=== PATIENT | female | born 1995 | race Caucasian/White ===

== ENCOUNTER → 2020-09-06 | Outpatient (CLI) | payer OTHER, SELFPAY | PROVIDERS: Referring Provider Internal Medicine; Visit Provider Internal Medicine | DX: Z23 Encounter for immunization (principal) | CPT/HCPCS: 90471; 90686 ==

== ENCOUNTER → 2020-11-03 11:29 | Outpatient (CLI) | payer OTHER, SELFPAY ==
[2020-11-03] MEDS: COVID-19 VACC(MODERNA-1)/PF 100 MCG/0.5 ML VIAL IM (11:36)
== END ==
PROVIDERS: Visit Provider Internal Medicine
DX: Z23 Encounter for immunization (principal)
CPT/HCPCS: 0011A; 91301

== ENCOUNTER → 2020-11-30 11:12 | Outpatient (CLI) | payer OTHER, SELFPAY ==
[2020-11-30] MEDS: COVID-19 VACC #2, MRNA(MOD) 100 MCG/0.5 ML VIAL IM (11:14)
== END ==
PROVIDERS: Visit Provider Internal Medicine
DX: Z23 Encounter for immunization (principal)
CPT/HCPCS: 0012A; 91301

== ENCOUNTER → 2021-09-25 08:11 | Outpatient (CLI) | payer OTHER, SELFPAY ==
[2021-09-25 11:40] LABS: COVID19 -Nasal RAPID Negative (Negative)
== END ==
PROVIDERS: Visit Provider Nurse Practitioner Family
DX: Z20.822 Contact with and (suspected) exposure to COVID-19 (principal); R05.9 Cough, unspecified; R09.89 Other specified symptoms and signs involving the circulatory and respiratory systems; R52 Pain, unspecified
CPT/HCPCS: 87635

== ENCOUNTER → 2022-03-15 15:04 | Outpatient (CLI) | payer OTHER, SELFPAY ==
--- NOTE | 2022-03-15 | DI.US.S_ITS ---
PROCEDURE: US OB >= 14 WEEKS FETUS INDICATIONS: 20 WEEK ANATOMY SCAN OUTSIDE/PRIOR DATING DATA: Last menstrual period (LMP): 10/16/2021 LMP-based estimated date of delivery (KELLE): 07/23/2022. First dating scan (date and location): 03/15/2022. Estimated date of delivery (KELLE) from first dating scan: 07/19/2022. The calculations are made using the ultrasound KELLE of 07/19/2022. TECHNIQUE: Real-time scanning was performed of the fetus, with image documentation and biometric measurements. COMPARISON: None. FINDINGS: General: A single living intrauterine gestation is present. Presentation: Vertex. Placenta: Placental position is anterior fundal , without previa. Amniotic fluid index: 13.9 cm, normal range is 5-24 cm. heart rate: 132 beats per minute. Maternal cervical canal: 4.6 cm long. Normal lower limit is 2.5 cm. biometrics: Biparietal diameter: 21 weeks 6 days Head circumference: 21 weeks 2 days Abdominal circumference: 22 weeks Femur length: 22 weeks 5 days Clinically estimated gestational age: 22 weeks Composite gestational age from present scan: 22 weeks Estimated weight and percentile: 481 g; 80 second percentile Anatomic survey: Neuro: Ventricles are non-dilated at less than 10 mm. Cisterna magna is normal at 3-11 mm. Cerebellum is normal in size and morphology. Nuchal skin fold: Normal at less than 6 mm between 14-21 weeks gestational age. Face: Nose and lips, facial profile are normal. Spine: No evidence for spina bifida. Heart: 4-chambered heart is present, with normal ventricular outflow tracts. Diaphragm: Diaphragm is intact. Stomach: Left-sided stomach is present. Kidneys: No hydronephrosis. Normal is less than 5 mm in 2nd trimester, less than 7 mm in 3rd trimester. Cord: 3-vessel cord has orthotopic insertion. Bladder: Normal in size. Extremities: All 4 extremities identified. IMPRESSION: 1. Single living IUP with mean composite gestational age of 22 weeks 0 days corresponding to ultrasound KELLE of 07/19/2022.. 2. Normal anatomic survey. We strive to produce accurate, complete, and clear reports of imaging services. To assist us in improving patient care, this report was composed using standard report templates and voice recognition software. Therefore, it may contain abnormal punctuation, insertions and/or omissions. Occasional wrong-word or sound-alike substitutions may occur. Though we review the report and make efforts to correct it, we do recommend that the report be read carefully in proper context to recognize any text inaccuracies. Dictated by: Gunnar MICHAEL Interpreted: Breanne Torres MD on 03/15/2022 at 16:26 Transcribed by: SELMA on 03/15/2022 at 16:32 Approved by: Breanne Torres M.D. on 03/15/2022 at 16:34
== END ==
PROVIDERS: PCP Family Medicine; Referring Provider Nurse Practitioner Obstetrics & Gynecology; Visit Provider Nurse Practitioner Obstetrics & Gynecology
DX: Z34.92 Encounter for supervision of normal pregnancy, unspecified, second trimester (principal); Z3A.22 22 weeks gestation of pregnancy
CPT/HCPCS: 76811

== ENCOUNTER 2022-07-05 05:57 | Observation (INO) | payer OTHER, SELFPAY ==
[2022-07-05] MEDS: TERBUTALINE 1 MG/ML VIAL 0.25 MG SUBCUT (07:26)
[2022-07-05] MEDS: ONDANSETRON 4 MG/2 ML INJ IV (07:26)
[2022-07-05 07:29] LABS: Add Manual Diff / Slide Review NO; Basophils Absolute Auto 0 /uL (0-100); Basophils Percent Auto 0.2 % (0-2); Eosinophils Absolute Auto 700 /uL (0-450); Eosinophils Percent Auto 8.2 % (2-4); Hematocrit 37.1 % (36-46); Hemoglobin 12.7 g/dL (12.0-16.0); Lymphocytes Absolute Auto 1800 /uL (1100-4500); Lymphocytes Percent Auto 20.9 % (25-40); Mean Corpuscular HGB Conc 34.3 % (30-36); Mean Corpuscular Hemoglobin 29.3 PG (26-34); Mean Corpuscular Volume 85.5 fL (80-100); Monocytes Absolute Auto 700 /uL (0-900); Monocytes Percent Auto 7.6 % (3-14); Neutrophils Absolute Auto 5500 /uL (1500-7000); Neutrophils Percent Auto 63.1 % (50-75); Platelet Count 204 X10^3/uL (150-400); Red Blood Cell Count 4.34 X10^6/uL (4.0-5.2); Red Cell Distribution Width 13.5 % (11.6-14.8); White Blood Cell Count 8.7 X10^3/uL (4.5-11.0)
[2022-07-05 07:40] LABS: COVID19 -Nasal RAPID Negative (Negative)
== END 2022-07-05 09:12 | disposition home or self-care (01) ==
PROVIDERS: Nurse Practitioner Obstetrics & Gynecology; Admitting Provider Obstetrics & Gynecology; PCP Family Medicine; Referring Provider Obstetrics & Gynecology; Visit Provider Obstetrics & Gynecology
DX: Z34.83 Encounter for supervision of other normal pregnancy, third trimester (principal); Z3A.37 37 weeks gestation of pregnancy; Z20.822 Contact with and (suspected) exposure to COVID-19
CPT/HCPCS: 59025; 59050; 59412; 76815; 85025; 86850; 86900; 86901; 87635; 96372; C9803; G0378; G0379; J2405

== ENCOUNTER 2022-07-17 15:24 | Outpatient (CLI) | payer OTHER, SELFPAY ==
--- NOTE | 2022-07-17 16:40 | P.TNLD_ITS ---
Visit Information Visit Information Date of evaluation: 07/17/22 Primary OB Provider: Ritika Solis On-call OB Provider: Trista Desai Reason for Evaluation: Yes other Comments/Additional reasons for admission: 26YO @ 11vsb0x here for evaluation of left flank pain. has been occurring intermittently throughout the day, wraps around the front and is worse with movement. No dysuria. +FM. no VB or LOF. Scheduled for breech presentation 07/19/2022. Vital Signs Vital Signs: BP 135/78bpm, HR 85bpm, T 98.5F Temporal Review of Systems Review of Systems ROS: Yes All systems reviewed with the patient and are negative except as oth erwise documented Exam Vital Signs (past 8 hours): see above Presentation: mookie breech Objective Labs Labs: UA pending Evaluation Evaluation Baseline heart rate: 130 Variability: Moderate (11-25) monitor accelerations: Present Monitor Decelerations: Absent Contraction Frequency (minutes): 3 Cervical dilation (cm): 0 Cervical effacement (%): 6 station: -2 Diagnosis, Plan/Disposition Final Diagnosis (1) False labor after 37 completed weeks of gestation: Status: Acute Plan/Disposition Plan: Counseled on mild contractions as cause for flank discomfort, while in triage patient was able to correlate the contractions with the discomfort, rated as mild. Recommend watchful waiting and encouraged her to come back in of contractions persist or worse and will be performed at that time. Will call if UA results abnormal. OB Disposition: home
[2022-07-18 18:10] LABS: Appearance Urine UA CLEAR; Bilirubin Urine UA NEGATIVE (NEGATIVE); Color Urine UA YELLOW; Glucose Urine UA NEGATIVE (Negative); Ketones Urine UA NEGATIVE (NEGATIVE); Leukocyte Esterase Urine UA NEGATIVE (NEGATIVE); Nitrite Urine UA NEGATIVE (Negative); Occult Blood Urine UA TRACE-LYSED (Negative); Protein Urine UA NEGATIVE (Negative); Urobilinogen Urine UA 0.2 E.U./dL (0.2)
[2022-07-18 18:14] LABS: pH Urine UA 6.5 (4.5-8.0)
[2022-07-18 18:26] LABS: Amorphous Sediment Urine 1+; Bacteria Urine None Seen; Culture Indicated Urine Cult Not Indicated; RBC Urine None Seen (0-5/HPF); WBC Urine None Seen (0-5/HPF)
== END 2022-07-17 16:40 | disposition home or self-care (01) ==
LOC: OB 07-20 08:32
PROVIDERS: PCP Family Medicine; Referring Provider Nurse Practitioner Obstetrics & Gynecology; Visit Provider Nurse Practitioner Obstetrics & Gynecology
DX: O47.1 False labor at or after 37 completed weeks of gestation (principal); Z3A.39 39 weeks gestation of pregnancy
CPT/HCPCS: 59025; 81001; G0378; G0379

== ENCOUNTER 2022-07-19 05:31 | Inpatient (IN) | payer OTHER, SELFPAY ==
[2022-07-19 06:26] LABS: Add Manual Diff / Slide Review NO; Basophils Absolute Auto 0 /uL (0-100); Basophils Percent Auto 0.4 % (0-2); Eosinophils Absolute Auto 900 /uL (0-450); Eosinophils Percent Auto 10.1 % (2-4); Hemoglobin 12.6 g/dL (12.0-16.0); Lymphocytes Absolute Auto 1900 /uL (1100-4500); Lymphocytes Percent Auto 21.5 % (25-40); Mean Corpuscular Hemoglobin 29.6 PG (26-34); Mean Corpuscular Volume 84.7 fL (80-100); Monocytes Absolute Auto 800 /uL (0-900); Monocytes Percent Auto 9.2 % (3-14); Neutrophils Absolute Auto 5200 /uL (1500-7000); Neutrophils Percent Auto 58.8 % (50-75); Platelet Count 218 X10^3/uL (150-400); Red Blood Cell Count 4.26 X10^6/uL (4.0-5.2); Red Cell Distribution Width 13.4 % (11.6-14.8); White Blood Cell Count 8.8 X10^3/uL (4.5-11.0)
[2022-07-19 06:29] VITALS: BP 126/76
--- NOTE | 2022-07-19 06:29 | PM.OBHP.IH.1 ---
OB HPI Date/Time Date of admission: 07/19/22 Date Patient Seen: 07/19/22 Time Patient Seen: 06:29 History of Present Condition Chief complaint: Primary : 2 Para: 0 care: good care, initiated at week # (10), number of visits and pounds weight gain (35) Dating criteria OB: LMP confirmed by 1st trimester US Ultrasounds: normal 1st trimester US and normal mid trimester US Obstetrical complications: other (breech presentation) Medical complications OB: none Indications Operative indications ( section): breech presentation Preadmission Labs Last OB Lab Results: Blood Type O Positive 07/05/22 07:00 Antibody Screen Negative 07/05/22 07:00 Hematocrit 36.0 % (36-46) 07/19/22 06:10 Hemoglobin 12.6 g/dL (12.0-16.0) 07/19/22 06:10 Rubella Antibody 101.0 IU/mL (>15) 09/22/19 14:33 -: Chlamydia screen: negative, Gonorrhea screen: negative and Urine: negative -: PAP smear: Normal Genetic Screens: Cell-free DNA: Normal External Labs Blood type OB HPI: O (+) positive -: Antibody screen: negative, HBsAG: negative, HIV: negative, RPR/VDLR: negative, Chlamydia screen: negative, Gonorrhea screen: negative, GBS status: negative and Urine: negative -: Rubella: immune and Varicella: immune HCAB: negative PAP: Normal Genetic Screens: Cell-free DNA: Normal Prior (ies) Past Pregnancies Del. Date GA/Weeks Labor Lgth Wt Sex Route Outcome Anesthesia Place Delv Breastfeed Preg Comp Name 06/22/21 7 spontaneous Evaluation Evaluation Baseline heart rate: 130 Variability: Moderate (11-25) monitor accelerations: Present Monitor Decelerations: Absent Contraction Frequency (minutes): 6 Uterine Contraction Intensity: Mild Status: Category l PFSH Social History Smoking Status: Never smoker Meds Home Medications and Allergies Home Medications Medication Instructions Recorded Confirmed Type No Known Home Medications 07/19/22 07/19/22 History Allergies Allergy/AdvReac Type Severity Reaction Status Date / Time No Known Drug Allergies Allergy Verified 07/19/22 05:59 OB Exam Narrative Exam Narrative: HEENT: No thyromegaly, no anterior cervical or supraclavicular lymphadenopathy. Lungs:Clear to auscultation bilaterally, no wheezes. Cardiovascular: Regular rate and rhythm, no murmurs, rubs, or gallops. Abdomen: No scars. No hepatosplenomegaly. No masses palpable. Fundal height: 39 cm Estimated weight: 7 lb Extremities: No edema Objective Labs Result Diagrams: 07/19/22 06:10 Labs: Laboratory Results - last 24 hr 07/19/22 06:10 WBC 8.8 RBC 4.26 Hgb 12.6 Hct 36.0 MCV 84.7 MCH 29.6 MCHC 35.0 RDW 13.4 Plt Count 218 Neut % (Auto) 58.8 Lymph % (Auto) 21.5 L [place] % (Auto) 9.2 Eos % (Auto) 10.1 H Baso % (Auto) 0.4 Neut # (Auto) 5200 Lymph # (Auto) 1900 [place] # (Auto) 800 Eos # (Auto) 900 H Baso # (Auto) 0 Assessment and Plan Assessment and Plan Assessment and Plan narrative: Assessment: 26-year-old 2 para 0 at 39+3 weeks gestation with persistent breech presentation Plan: Primary low-transverse section The risks, benefits, and alternatives to the procedure were explained to the patient. The risks including bleeding, infection, injury to the bowel, bladder, or ureters. She understands these risks and agrees to proceed. A full par Q was held and consent form was signed. Time Spent with Patient Total time spent with greater than 50% in coordination of care (as documented) at patient's floor/unit and/or counseling patient:: 15-24 minutes
[2022-07-19] MEDS: ACETAMINOPHEN 325 MG TABLET 975 MG PO (06:57)
--- NOTE | 2022-07-19 07:08 | PM.PREOP ---
Pre-operative Note COVID-19 COVID-19 status: Negative Result date/Date tested (Pos, Neg/Pending): 07/19/22 Criteria for continued procedure: Non-surgical alternatives not available or appropriate per current SOC Interval Note History & Physical reviewed/Exam performed by Physician: Yes Changes to H&P: No H&P completed within 30 days and has changed as indicated here:: 07/19/22
[2022-07-19 07:11] LABS: COVID19 -Nasal RAPID Negative (Negative)
[2022-07-19] MEDS: CITRIC ACID/SODIUM CITRATE 15 ML SOLUTION 30 ML PO (07:39)
[2022-07-19] MEDS: LACTATED RINGERS 1,000 ML 1000 ML IV (07:39)
[2022-07-19] MEDS: LACTATED RINGERS 1,000 ML 42 ML IV ×2 (07:45→08:40)
[2022-07-19] MEDS: CEFAZOLIN 2 GM/100 ML PREMIX 100 ML IV (07:59)
--- NOTE | 2022-07-19 08:27 | SUR.OPER ---
Supine on Padded OR bed, head on pillow, safety belt at thigh, arms secured on padded arm boards at <90 degrees abduction. Bump under right buttock. Legs uncrossed with pillow under knees, gel pad to heels, tape over blanket to lower legs. Gel pad under bilateral heels and gel pad placed between patient posterior upper leg and urinary catheter tubing.
--- NOTE | 2022-07-19 08:38 | SUR.OPER ---
Viable baby girl delivered at 0826. Placenta delivered. Cord blood tubes X2 and placenta given to L&D RN.
[2022-07-19 09:15] VITALS: BP 116/62; PULSE 60; RESP 16; TEMP 36.2; O2SAT 98
[2022-07-19 09:25] VITALS: BP 115/59; PULSE 63; RESP 20; O2SAT 96
[2022-07-19 09:36] VITALS: BP 122/75; PULSE 60; RESP 16; TEMP 36.4; O2SAT 98
[2022-07-19 09:45] VITALS: BP 116/70; PULSE 60; RESP 16; TEMP 36.6; O2SAT 100
--- NOTE | 2022-07-19 09:52 | PM.OBCS.1 ---
Operative Date/Time/Diagnoses Date of procedure: 07/19/22 Time of procedure: 09:52 Pre-op diagnosis: 39-,3/7 weeks gestation Persistent breech presentation Failed external version Post-op diagnosis: same Procedure & Clinicians Procedure: Primary low-transverse section Same procedure as scheduled: Yes Indications: Persistent breech presentation Surgeon: Jocelynn Yang Click Yes if Unassisted: No Justice Professor: Ankit Elizalde Reason for Justice Professor: The speech language pathology assistant was necessary to retract during entry into the abdomen and uterus. He assisted in delivery of the . He retracted and clips suture on closure of the uterus and abdomen. He closed the contralateral fascia. Anesthesia Type: Spinal (With Duramorph) Operative Notes Findings: Live female infant in the complete breech presentation Normal uterus tubes and ovaries Closure Type: primary Specimen(s): cord blood and placenta Intraoperative meds administered: Acetaminophen, Duramorph, Ketorolac and Pitocin Applied: Catheter (To continuous drainage) Estimated Blood Loss (mL): 350 Blood products transfused: none Procedure in detail: The patient was taken to the operating room where she was placed in the seated position. Spinal anesthesia was administered. She was then placed in the dorsal supine position with a leftward tilt. She was prepped and draped in the usual sterile fashion. A timeout was performed. After spinal analgesia was found to be adequate, a Pfannenstiel skin incision was made 2 fingerbreadths above the pubic symphysis and carried through to the underlying layer fascia. The fascia was nicked in the midline, and the incision extended bilaterally with the Davis scissors. The superior aspect of the fascial incision was grasped with a [place] clamps, elevated, and the underlying rectus muscles dissected off sharply and bluntly. Attention was then turned to the inferior aspect of this incision which in a similar fashion was grasped with a [place] clamps, elevated, and the underlying rectus muscles dissected off sharply and bluntly. The rectus muscles were in the midline. The peritoneum was identified, grasped between 2 hemostats, and entered sharply with the Metzenbaum scissors. This incision was extended superiorly and inferiorly with good visualization of the bladder. The bladder blade was inserted. The vesicouterine peritoneum was identified, grasped with the pickup, and entered sharply with the Metzenbaum scissors. This incision was extended bilaterally, and the bladder flap was created digitally. The bladder blade was reinserted. The lower uterine segment was incised in a transverse fashion with the scalpel. Upon entering the amniotic sac there was a moderate amount of clear amniotic fluid. The infant was delivered by total breech extraction, and wrapped in a warm blanket. The cord was double clamped and cut after 1 minute. The infant was handed off to waiting RN and RT. The placenta was delivered by expression. The uterus was cleared of all clots and debris. The cervix was opened with a ring forceps, which was then handed off the field. The uterine incision was repaired with #1 chromic in a running interlocking fashion, and a second layer the same suture was used for an imbricating layer. Hemostasis was achieved. The tubes and ovaries were examined and were found to be normal. The gutters were cleared of all clots and debris. The bladder flap was reapproximated using 2-0 Vicryl in a running fashion. The parietal peritoneum was closed using 2-0 Vicryl in a running fashion. The fascia was reapproximated using 0 Vicryl in a running fashion. The subcutaneous layer was copiously irrigated with warm normal saline. 5 simple interrupted sutures of 3-0 Vicryl were placed to reapproximate the subcutaneous layer. The skin was closed with 4-0 Monocryl in a subcuticular fashion. Steri-Strips were placed. An Aquacel dressing was placed. The uterus was expressed of a small amount of old blood. Sponge, lap, and instrument counts were correct x-2. The patient tolerated the procedure well, and was taken to PACU in stable condition. Complications: none [place] Baby 1: Gender: Female Presentation: breech Details: complete Placental Delivery Description: Expressed Cord Vessel Description: 3 Vessels and Clamped/Cut (After 1 minute) score (1 min): 9 score (5 min): 9 weight: 7 lb 4 oz Post-operative Condition: stable Disposition: PACU Aftercare: routine postop
[2022-07-19] MEDS: LACTATED RINGERS 1,000 ML 100 ML IV ×2 (10:23→18:06)
[2022-07-19] MEDS: OXYCODONE IR 5 MG TABLET PO ×3 (12:34→23:02)
[2022-07-19] MEDS: ACETAMINOPHEN 325 MG TABLET 650 MG PO ×2 (12:52→19:22)
[2022-07-19] MEDS: diphenhydrAMINE 50 MG/ML VIAL 25 MG IV (14:09)
[2022-07-19] MEDS: KETOROLAC 30 MG/ML VIAL IV ×2 (14:47→21:08)
[2022-07-19] MEDS: DOCUSATE 100 MG CAPSULE 200 MG PO (21:08)
[2022-07-20] MEDS: ACETAMINOPHEN 325 MG TABLET 650 MG PO ×4 (01:19→21:21)
[2022-07-20] MEDS: diphenhydrAMINE 50 MG/ML VIAL 25 MG IV (01:21)
[2022-07-20] MEDS: KETOROLAC 30 MG/ML VIAL IV (03:24)
[2022-07-20 04:16] VITALS: BP 114/73; PULSE 68; RESP 16; TEMP 36.6
[2022-07-20 05:26] LABS: Hematocrit 29.3 % (36-46); Hemoglobin 10.3 g/dL (12.0-16.0)
[2022-07-20] MEDS: OXYCODONE IR 5 MG TABLET PO ×6 (05:30→22:50)
--- NOTE | 2022-07-20 08:08 | PM.OBPN.1 ---
Subjective - OB Subjective Patient comments: no complaints, pain well controlled, tolerating diet and flatus present baby status: doing well and nursing well [place] feeding status: exclusively breast feeding Date Patient Seen: 07/20/22 Time Patient Seen: 08:09 Exam Vital Signs (past 8 hours): Oxygen Delivery Method Room Air BP 121/68mmHg, HR 71bpm, RR 16/min, T 97.8F Tympanic, SpO2 97% Skin Other: Incision covered with Aquacel, no drainage note Objective Labs Result Diagrams: 07/20/22 05:05 Labs: Laboratory Results - last 24 hr 07/20/22 05:05 Hgb 10.3 L Hct 29.3 L Assessment & Plan Plan day: 1 plan OB: routine postop care Time Spent With Patient Time: Total time spent is greater than 50% in coordination of care (as documented) at patient's floor/unit and/or counseling patient: Time with patient: less than 15 minutes
[2022-07-20] MEDS: IBUPROFEN 600 MG TABLET PO ×3 (09:04→21:22)
[2022-07-20] MEDS: DOCUSATE 100 MG CAPSULE 200 MG PO ×2 (09:04→21:21)
[2022-07-20] MEDS: PRENATAL VIT,CALC/IRON/FOLIC 1 TABLET 1 TAB PO (09:04)
[2022-07-21] MEDS: ACETAMINOPHEN 325 MG TABLET 650 MG PO ×3 (02:50→11:52)
[2022-07-21] MEDS: OXYCODONE IR 10 MG TABLET PO ×2 (02:50→06:20)
[2022-07-21] MEDS: IBUPROFEN 600 MG TABLET PO ×2 (06:20→11:40)
--- NOTE | 2022-07-21 06:45 | PM.OBDS.1 ---
Discharge Providers Provider Date of admission: 07/19/22 05:31 Discharge Date: 07/21/22 Primary care physician: Sharon Lauren MD Consults: 07/19/22 10:15 Consult to Bobbin Stripper Routine Comment: Discharge provider: Ritika Solis CNM Summary Hospital Course Date Patient Seen: 07/21/22 Time Patient Seen: 06:57 Diagnoses: O82 Hospital Course: PPD2: Stable s/p NSVB. Voiding, ambulating and independently Tolerating a general diet. Passing gas. Pain is well controlled with PO medication. Vaginal bleeding is scant without clots. Feeling ready for discharge to home this morning. Peripartum Data Delivery Method: Section Laceration Description: None Episiotomy description: None Procedures: Primary for breech complications: none Discharge Diagnosis (1) Status post primary low transverse section: Status: Acute Status at Discharge Cognitive/behavioral status at discharge: oriented and calm Functional status at discharge: independent ambulation Overall status at discharge: patient is progressing back to baseline Time Spent with Patient Time attestation: Total time spent providing and/or coordinating discharge services: Objective Labs Result Diagrams: 07/20/22 05:05 Exam Vital Signs (past 8 hours): Oxygen Delivery Method Room Air BP 111/68mmhg, HR 76bpm, RR 18/min, T 98.4F Tympanic, SpO2 97% on RA Other: Fundus firm @ u-2, lochia scant. Aquacel dressing was removed by RN, saturated after a shower. Steri-strips intact, incision well approximated without drainage. Discharge Plan Discharge Plan Patient Disposition: Home Provider Discharge Comment: Call with fever, chills, redness or drainage around the incision or bleeding vaginally more than a pad in an hour Tylenol 650 mg every 6 hours Ibuprofen 600 mg every 6 hours Discharge orders & Medications Prescriptions: New oxycodone 5 mg tablet 5 mg PO Q4H PRN (Reason: pain) Qty: 20 0RF docusate sodium 100 mg Capsule 200 mg PO BID 14 Days Qty: 56 0RF ibuprofen 600 mg Tablet 600 mg PO Q6H 14 Days Qty: 56 0RF ibuprofen 600 mg tablet 600 mg PO Q6H PRN (Reason: pain) 14 Days Qty: 60 0RF Follow up/Referrals: Will,Ritika T, CNM [Advanced Agency Trainer] - 1 Week (06/26/22 @ 0845 in office 08/02/22 @ 1045 by phone Saturday08/31/22 @ 0900 in office) Diet/Activity/Treatments Diet: Regular Activity: No heavy lifting Nothing in the vagina x 6 weeks Skin/Wound/Dressing Care Report to your healthcare provider any signs of infection, such as:: chills, fever, increased pain, unusual drainage and unusual redness Dressing: Do not remove Visit Report/Discharge Packet Instructions: DI for , DI for Prescription Opioid Use Stand Alone Forms: Discharge: Care Discharge Data Primary Care Provider: Sharon Lauren
[2022-07-21] MEDS: DOCUSATE 100 MG CAPSULE 200 MG PO (08:55)
[2022-07-21] MEDS: PRENATAL VIT,CALC/IRON/FOLIC 1 TABLET 1 TAB PO (08:55)
--- NOTE | 2022-07-21 10:25 | PM.OBDS.1 ---
Discharge Providers Provider Date of admission: 07/19/22 05:31 Discharge Date: 07/21/22 Primary care physician: Sharon Lauren MD Consults: 07/19/22 10:15 Consult to Resource Teacher Routine Comment: Discharge provider: Jenna Jean Baptiste MD Summary Hospital Course Date Patient Seen: 07/21/22 Time Patient Seen: 10:25 Diagnoses: s/p primary for breech Hospital Course: PPD2: . Voiding, ambulating and independently Tolerating a general diet. Passing gas. Pain is well controlled with PO medication. Vaginal bleeding is scant without clots. Incision clean/dry/intact. Feeling ready for discharge to home this morning. Peripartum Data Infant Delivery Method: Section complications: none Discharge Diagnosis (1) Status post primary low transverse section: Status: Acute Status at Discharge Overall status at discharge: patient is back to baseline Time Spent with Patient Time attestation: Total time spent providing and/or coordinating discharge services: Time spent: Less than 30 minutes Specific discharge activities: Do not lift >10# for 6 weeks. Pelvic rest x 6 weeks. Objective Labs Result Diagrams: 07/20/22 05:05 Exam Vital Signs (past 8 hours): Oxygen Delivery Method Room Air 114/73, 68, 16, 97.8 Narrative Exam Narrative: Incision - C/D/I Extremities - trace edema, nontender Discharge Plan Discharge Plan Patient Disposition: Home Provider Discharge Comment: Call with fever, chills, redness or drainage around the incision or bleeding vaginally more than a pad in an hour Tylenol 650 mg every 6 hours Ibuprofen 600 mg every 6 hours Discharge orders & Medications Prescriptions: New oxycodone 5 mg tablet 5 mg PO Q4H PRN (Reason: pain) Qty: 20 0RF docusate sodium 100 mg Capsule 200 mg PO BID 14 Days Qty: 56 0RF ibuprofen 600 mg Tablet 600 mg PO Q6H 14 Days Qty: 56 0RF ibuprofen 600 mg tablet 600 mg PO Q6H PRN (Reason: pain) 14 Days Qty: 60 0RF Follow up/Referrals: Ritika Solis CNM [Advanced Radiologic Technology Teacher] - 1 Week (06/26/22 @ 0845 in office 08/02/22 @ 1045 by phone Saturday08/31/22 @ 0900 in office) Diet/Activity/Treatments Diet: Regular Activity: No heavy lifting Nothing in the vagina x 6 weeks Skin/Wound/Dressing Care Report to your healthcare provider any signs of infection, such as:: chills, fever, increased pain, unusual drainage and unusual redness Visit Report/Discharge Packet Instructions: DI for , DI for Prescription Opioid Use Stand Alone Forms: Discharge: Care Discharge Data Primary Care Provider: Sharon Lauren
[2022-07-21] MEDS: OXYCODONE IR 5 MG TABLET PO (11:40)
== END 2022-07-21 13:00 | disposition home or self-care (01) | DRG 787 ==
PROVIDERS: Admitting Provider Obstetrics & Gynecology; PCP Family Medicine; Referring Provider Obstetrics & Gynecology; Visit Provider Obstetrics & Gynecology
PROC: 10D00Z1 Extraction of Products of Conception, Low, Open Approach (ICD-10-PCS; CPT 59514; principal; 2022-07-19 07:45)
DX: O32.8XX0 Maternal care for other malpresentation of fetus, not applicable or unspecified (principal); O47.1 False labor at or after 37 completed weeks of gestation; Z3A.39 39 weeks gestation of pregnancy; Z37.0 Single live birth; Z20.822 Contact with and (suspected) exposure to COVID-19
CPT/HCPCS: 36415; 59025; 59050; 59514; 81001; 85014; 85018; 85025; 86850; 86900; 86901; 87635; C9803; J0690; J1200; J1885; J2274; J2405; J2765

== ENCOUNTER → 2023-08-19 12:16 | Outpatient (CLI) | payer OTHER, SELFPAY ==
--- NOTE | 2023-08-19 | DI.US.S_ITS ---
PROCEDURE: US OB <= 14 WEEKS FETUS INDICATIONS: SIZE DATES OUTSIDE/PRIOR DATING DATA: Last menstrual period (LMP): 06/27/2023 LMP-based estimated date of delivery (KELLE): 04/02/2024. First dating scan (date and location): 08/19/2023. Estimated date of delivery (KELLE) from first dating scan: 04/05/2024. TECHNIQUE: Real-time scanning was performed of the fetus and maternal pelvic organs, with image documentation. Endovaginal scanning was also performed to better visualize the fetus and maternal ovaries. COMPARISON: US, US OB >= 14 WEEKS FETUS, 03/15/2022, 16:32. FINDINGS: Embryo: [place]-rump length measures 1 cm corresponding to 7 weeks 1 day. Small perigestational sac bleed site measuring 1.4 x 0.4 x 0.2 cm Heart rate: 135 Maternal organs: Ovaries within normal limits, with 1.7 cm right corpus luteal cyst. IMPRESSION: 1. Single living IUP with estimated gestational age of 7 weeks 1 day, corresponding to an ultrasound KELLE of 04/05/2024. 2. Small perigestational sac hemorrhage. We strive to produce accurate, complete, and clear reports of imaging services. To assist us in improving patient care, this report was composed using standard report templates and voice recognition software. Therefore, it may contain abnormal punctuation, insertions and/or omissions. Occasional wrong-word or sound-alike substitutions may occur. Though we review the report and make efforts to correct it, we do recommend that the report be read carefully in proper context to recognize any text inaccuracies. Dictated by: Gunnar MICHAEL Interpreted: Artie Polk MD on 08/19/2023 at 13:32 Transcribed by: [email or web address] on 08/19/2023 at 13:33 Approved by: Artie Polk M.D. on 08/19/2023 at 21:09
== END ==
PROVIDERS: PCP Family Medicine; Referring Provider Nurse Practitioner Obstetrics & Gynecology; Visit Provider Nurse Practitioner Obstetrics & Gynecology
DX: O36.80X0 Pregnancy with inconclusive fetal viability, not applicable or unspecified (principal)
CPT/HCPCS: 76801; 76817

== ENCOUNTER → 2023-09-09 16:45 | Outpatient (CLI) | payer OTHER, SELFPAY ==
--- NOTE | 2023-09-09 16:54 | DI.US.S_ITS ---
PROCEDURE: US OB <= 14 WEEKS FETUS INDICATIONS: VIABILITY - NO HEART TONES AT PROVIDER'S OFFICE. OUTSIDE/PRIOR DATING DATA: Last menstrual period (LMP): 06/27/2023. LMP-based estimated date of delivery (KELLE): 04/02/2024. First dating scan (date and location): 08/19/2023. Estimated date of delivery (KELLE) from first dating scan: 04/05/2024. TECHNIQUE: Real-time scanning was performed of the fetus and maternal pelvic organs, with image documentation. Endovaginal scanning was also performed to better visualize the fetus and maternal ovaries. COMPARISON: [facility], , OB <= 14 WEEKS FETUS, 08/19/2023, 12:25. FINDINGS: Intrauterine gestational sac visualized. Embryo: pole measures 2.1 centimeters, corresponding to 8 weeks 5 days. Heart rate: Absent. Maternal organs: Ovaries are unremarkable. IMPRESSION: Diagnostic findings consistent with demise, with a pole measuring 2.1 centimeters with an absent heart rate. We strive to produce accurate, complete, and clear reports of imaging services. To assist us in improving patient care, this report was composed using standard report templates and voice recognition software. Therefore, it may contain abnormal punctuation, insertions and/or omissions. Occasional wrong-word or sound-alike substitutions may occur. Though we review the report and make efforts to correct it, we do recommend that the report be read carefully in proper context to recognize any text inaccuracies. Dictated by: Marko Jeong M.D. on 09/09/2023 at 17:54 Approved by: Marko Jeong M.D. on 09/09/2023 at 17:56
== END ==
PROVIDERS: PCP Family Medicine; Referring Provider Nurse Practitioner Obstetrics & Gynecology; Visit Provider Nurse Practitioner Obstetrics & Gynecology
DX: O36.80X0 Pregnancy with inconclusive fetal viability, not applicable or unspecified (principal)
CPT/HCPCS: 76801; 76817

== ENCOUNTER → 2024-05-27 16:14 | Outpatient (CLI) | payer OTHER, SELFPAY ==
--- NOTE | 2024-05-27 16:15 | DI.US.S_ITS ---
PROCEDURE: US OB >= 14 WEEKS FETUS INDICATIONS: 20WK ANATOMY SCAN OUTSIDE/PRIOR DATING DATA: Last menstrual period (LMP): 01/07/2024. LMP-based estimated date of delivery (KELLE): 10/13/2024. First dating scan (date and location): Unknown. Estimated date of delivery (KELLE) from first dating scan: Unknown The calculations are made using the clinical KELLE of 10/13/2024. TECHNIQUE: Real-time scanning was performed of the fetus, with image documentation and biometric measurements. COMPARISON: US, US OB <= 14 WEEKS FETUS, 09/09/2023, 17:03. FINDINGS: General: A single living intrauterine gestation is present. Presentation: Breech. Placenta: Placental position is anterior , without previa. \ Amniotic fluid index: 15.6 cm, normal range is 5-24 cm. Single deepest vertical pocket is 5 cm. heart rate: 147 beats per minute. Maternal cervical canal: 4.3 cm long. Normal lower limit is 2.5 cm. biometrics: Biparietal diameter: 4.8 cm 20 weeks 4 days Head circumference: 17.3 cm 19 weeks 6 days Abdominal circumference: 16.1 cm 21 weeks 2 days Femur length: 3.2 cm 20 weeks 0 days Clinically estimated gestational age: 20 weeks 1 day Composite gestational age from present scan: 20 weeks 3 days Estimated weight and percentile: 363 g 78th percentile Anatomic survey: Neuro: Ventricles are non-dilated at less than 10 mm. Cisterna magna is normal at 3-11 mm. Cerebellum is normal in size and morphology. Nuchal skin fold: Normal at less than 6 mm between 14-21 weeks gestational age. Face: Nose and lips, facial profile are normal. Spine: No evidence for spina bifida. Heart: 4-chambered heart is present, with normal ventricular outflow tracts. Diaphragm: Diaphragm is intact. Stomach: Left-sided stomach is present. Kidneys: No hydronephrosis. Normal is less than 5 mm in 2nd trimester, less than 7 mm in 3rd trimester. Cord: 3-vessel cord has orthotopic insertion. Bladder: Normal in size. Extremities: All 4 extremities identified. IMPRESSION: Single live intrauterine with gestational age today of 20 weeks 3 days. Anatomy is within normal limits. We strive to produce accurate, complete, and clear reports of imaging services. To assist us in improving patient care, this report was composed using standard report templates and voice recognition software. Therefore, it may contain abnormal punctuation, insertions and/or omissions. Occasional wrong-word or sound-alike substitutions may occur. Though we review the report and make efforts to correct it, we do recommend that the report be read carefully in proper context to recognize any text inaccuracies. Dictated by: Breanne Torres M.D. on 05/28/2024 at 16:12 Approved by: Breanne Torres M.D. on 05/28/2024 at 16:15
== END ==
PROVIDERS: PCP Family Medicine; Referring Provider Advanced Practice Midwife; Visit Provider Advanced Practice Midwife
DX: Z34.92 Encounter for supervision of normal pregnancy, unspecified, second trimester (principal); Z3A.20 20 weeks gestation of pregnancy
CPT/HCPCS: 76811